=== PATIENT | male | born 1945 | race Caucasian/White ===

== ENCOUNTER 2018-11-09 12:01 | Emergency (ER) | payer MEDICARE, OTHER ==
[2018-11-09 12:29] VITALS: BP 119/54
--- NOTE | 2018-11-09 12:54 | UC ---
Throat Pain/Nasal Sarthak HPI - HPI Summary HPI Summary: 1. sore throat x 2 day pain is 7 out of 10 , radiating to his left ear and neck area worse with eating, nothing makes it better nasal congestion , no cough, no fever, no chills 2. bilateral knee pain , s/p fall on his knee yesterday increase pain with walking, better with rest, - History of Current Complaint Chief Complaint: UCGeneralIllness Stated Complaint: SORE THROAT LEFT EAR/S/P FALL HEAD Time Seen by Provider: 11/09/18 12:19 Hx Obtained From: Patient Onset/Duration: Gradual Onset, Lasting Days - 2, Still Present Severity: Moderate Pain Intensity: 9 Cough: None Associated Signs & Symptoms: Positive: Nasal Discharge. Negative: Dysphagia, FB Sensation, Drooling, Wheezing, Hoarseness, Sinus Discomfort, Fever, Vomiting , Rash - Allergies/Home Medications Allergies/Adverse Reactions: Allergies Allergy/AdvReac Type Severity Reaction Status Date / Time No Known Allergies Allergy Verified 11/09/18 12:30 Home Medications: Home Medications Aspirin 1 tab PO DAILY 11/09/18 [History Confirmed 11/09/18] Cetirizine* [ZyrTEC 10 MG TAB*] 1 tab PO DAILY 11/09/18 [History Confirmed 11/09] Citalopram TAB* [Celexa TAB*] 1 tab PO DAILY 11/09/18 [History Confirmed ] Donepezil HCl [Aricept] 1 tab PO BEDTIME 11/09/18 [History Confirmed 11/09/18] Memantine TAB* [Namenda TAB*] 1 tab PO BID 11/09/18 [History Confirmed 11/09/18] Montelukast Sodium TAB* [Singulair 10 MG TAB*] 1 tab PO BEDTIME 11/09/18 [ History Confirmed 11/09/18] Omeprazole 1 tab PO DAILY 11/09/18 [History Confirmed 11/09/18] Rosuvastatin (NF) [Crestor (NF)] 1 tab PO DAILY 11/09/18 [History Confirmed ] traZODone TAB* [Desyrel TAB*] 1 tab PO BEDTIME 11/09/18 [History Confirmed 11/09] PMH/Surg Hx/FS Hx/Imm Hx - Additional Past Medical History Additional PMH: skin cancer Cardiovascular History: Cardiac Disease - Surgical History Surgical History: Yes Surgery Procedure, Year, and Place: tonsillectomy as a child. cardiac stents x2. laminectomy lumbar spine. L knee arthroscopy. hernia repair. lithotripsy x2 - Family History Known Family History: Negative: Diabetes - Social History Alcohol Use: Rare Substance Use Type: None Smoking Status (MU): Never Smoked Tobacco Review of Systems All Other Systems Reviewed And Are Negative: Yes Constitutional: Positive: Negative Skin: Positive: Negative Eyes: Positive: Negative ENT: Positive: Sore Throat, Ear Ache, Nasal Discharge Respiratory: Positive: Negative Cardiovascular: Positive: Negative Gastrointestinal: Negative: Nausea Motor: Positive: Negative Neurovascular: Positive: Negative Musculoskeletal: Positive: Other: - bilateral knee pain Is Patient Immunocompromised?: No Physical Exam Triage Information Reviewed: Yes Appearance: Well-Appearing, Well-Nourished, Pain Distress Vital Signs: Initial Vital Signs Temp 98.7 F 11/09/18 12:21 Pulse 59 11/09/18 12:21 Resp 14 11/09/18 12:21 BP 119/54 11/09/18 12:21 Pulse Ox 99 11/09/18 12:21 Vital Signs Reviewed: Yes Eyes: Positive: Conjunctiva Clear ENT: Positive: Normal ENT inspection, Hearing grossly normal, Pharynx normal, TMs normal. Negative: Pharyngeal erythema, Nasal congestion, Nasal drainage, TM bulging, TM dull, TM red Neck: Positive: Supple, Nontender, No Lymphadenopathy Respiratory: Positive: Chest non-tender, Lungs clear, Normal breath sounds Cardiovascular: Positive: RRR, No Murmur, Pulses Normal Musculoskeletal: Positive: Other: - bilateral knees: no swelling, no effusion, + diffuse tenderness, pain with flexion and extension Throat Pain/Nasal Course/Dx - Differential Dx/Diagnosis Provider Diagnosis: Viral pharyngitis, Contusion, knee Discharge - Sign-Out/Discharge Documenting (check all that apply): Patient Departure All imaging exams completed and their final reports reviewed: Yes - Discharge Plan Condition: Stable Disposition: HOME Patient Education Materials: Pharyngitis (ED), Knee Pain (ED) Referrals: No Primary Care Phys,NOPCP [Primary Care Provider] - 7 Days - Billing Disposition and Condition Condition: STABLE Disposition: Home
== END 2018-11-09 13:29 | disposition home or self-care (01) ==
LOC: UCCORT 12:01
DX: J02.8 Acute pharyngitis due to other specified organisms (principal); S80.00XA Contusion of unspecified knee, initial encounter; W19.XXXA Unspecified fall, initial encounter; Y92.9 Unspecified place or not applicable; Z85.828 Personal history of other malignant neoplasm of skin
CPT/HCPCS: 99202; G0463